=== PATIENT | male | born 1975 | race African-American/Black ===

== ENCOUNTER 2016-12-05 02:24 | Emergency (ER) | payer OTHER, MEDICAID ==
[2016-12-05 02:32] VITALS: BP 160/98; BMI 31.1
--- NOTE | 2016-12-05 02:41 | DR.GENAD ---
HPI - PCP Primary Care Physician: CHANNING - HPI Comment HPI Comment: WORSE TONIGHT. NO FEVER. HAVE MULTIPLE DENTAL CARIES. - Complaint/Symptoms Chief Complaint Doctors Comments: DENTAL PAIN AND SWELLING TIMES ONE WEEK. SWOLLEN RIGHT JAW FOR FEW DAYS. Chief Complaint:: TOOTHACHE RIGHT UPPER SINCE LAST WEEK. HISTORY OF DENTAL CARIES. - Nurses notes reviewed Nurses Notes Review: Yes - Source History Provided: Patient - Mode of Arrival Mode of Arrival: Ambulatory - Timing Onset of Chief Complaint: 11/28/16 Came on: Suddenly - Duration Duration: Constant Duration: Days - Severity Severity: Moderate PMH - PMH Past Medical History: No Past Surgical History: No - Family History History of Family Medical Conditions: No - Social History Does patient currently use any type of tobacco product: Yes Have you used tobacco products in the last 12 months: Yes Type of Tobacco Use: Cigarettes Alcohol Use: Occasionally Do you use any recreational Drugs:: No Lives With: Family Lives Where: Home - infectious screening In the last 2 months have you had wt loss of >10#?: NO Have you had fever, night sweats or hemotysis?: No Have you traveled outside the country in the last 6 months?: No Isolation: Standard ROS - Review of Systems Constitutional: No Symptoms Reported Eyes: No Symptoms Reported ENTM: Mouth Pain (RT JAW SWOLLEN.). negative: Loose Teeth (DENTAL PAIN AND SWELLING RT UPPER 3RD MOLAR.) Respiratoy: negative: Productive Cough, Short of Breath, Wheezing, Hemoptysis Cardiovascular: No Symptoms Reported Gastrointestinal/Abdominal: No Symptoms Reported Genitourinary: No Symptoms Reported Neurological: No Symptoms Reported Musculoskeletal: Muscle Pain, Other (RT JAW SWOLLEN AND TENDER.) Integumentary: No Symptoms Reported Hematologic/Lymphatic: No Symptoms Reported Endocrine: No Symptoms Reported All Other Systems: Reviewed and Negative PE - Vital Signs Vitals: Temperature 98 F Pulse Rate 109 Respiratory Rate 20 Blood Pressure 160/98 O2 Sat by Pulse Oximetry 95 - General Limitations: No Limitations General Appearance: Alert - Head Head Exam: Normal Inspection - Eyes Eye exam: Normal Appearance - ENT ENT Exam: Normal External Ear Exam External Ear Exam: Normal External Inspection TM/Canal Exam: Bilateral Normal Nose Exam: Normal Nose Exam Mouth Exam: Other (RIGHT UPPER THIRD MOLRS INFLAME, TENDER WITH SWOLLEN GUM.). negative: Trismus - Neck Neck Exam: Trachea Midline - Chest Chest Inspection: Symmetric Chest Wall Rise - Respiratory Respiratory Exam: Normal Lung Sounds Bilat Respiratory Exam: Bilateral Clear to Auscultation - Cardiovascular Cardiovascular Exam: Regular Rate, Normal Rhythm, Normal Heart Sounds - Abdominal Exam Abdominal Exam: Normal Bowel Sounds, Soft. negative: Tenderness - Extremities Extremities Exam: Normal Inspection - Back Back Exam: Normal Inspection - Neurologic Neurological Exam: Alert, Oriented X3 - Psychiatric Psychiatric Exam: Normal Affect, Normal Mood - Skin Skin Exam: Normal Color MDM - Differential Diagnosis Differential Diagnosis: DENTAL PAIN, GINGIVITIS Course - Treatment Treatment: SEE ORDERS. - Education/Counseling Education/Counseling: Patient, Education Educated On: Treatment, Diagnosis, Needs for Follow Up - Diagnosis Discharge Problem: Pain, dental, Gingivitis - Discharge Plan Condition: Stable Prescriptions: Acetaminophen with Codeine [Tylenol/Codeine #3 300-30 mg] 1 tab PO Q4-6H PRN # 12 tab PRN Reason: Pain Amoxicillin [Amoxil 875 mg] 875 mg PO BID #20 tab Ibuprofen [Motrin Tab 800 mg] 800 mg PO Q8H PRN #20 tab PRN Reason: Pain/Inflammation - Follow ups/Referrals Follow ups/Referrals: [facility],None [Primary Care Provider] - 3 days - Instructions Instructions: Dental Pain, Gingivitis, [id number] Additional Instructions: RETURN TO ED IF WORSE. SEE YOUR DENTIST THIS WEEK.
[2016-12-05] MEDS ORDERED: TORADOL 60 MG VIAL IM ONE (02:52)
[2016-12-05] MEDS ORDERED: DECADRON INJ IM ONE (02:52)
[2016-12-05] MEDS ORDERED: DECADRON INJ ONE (02:55)
[2016-12-05] MEDS ORDERED: TORADOL 60 MG VIAL ONE (02:55)
== END 2016-12-05 03:28 | disposition home or self-care (01) ==
LOC: ER 02:24
DX: K08.89 Other specified disorders of teeth and supporting structures (principal); K05.10 Chronic gingivitis, plaque induced
CPT/HCPCS: 96372; 99282; 99283; J1100; J1885